=== PATIENT | female | born 1940 | race African-American/Black ===

== ENCOUNTER 2016-07-08 12:00 | Outpatient (RCR) | payer OTHER | END 2016-07-20 | disposition home or self-care (01) | LOC: PTY 12:00 | DX: Z96.652 Presence of left artificial knee joint (principal); M54.9 Dorsalgia, unspecified; M17.11 Unilateral primary osteoarthritis, right knee | CPT/HCPCS: 97110; 97161; G0283 ==

== ENCOUNTER 2016-07-22 11:00 | Outpatient (RCR) | payer OTHER | END 2016-08-19 | disposition home or self-care (01) | LOC: PTY 11:00 | DX: Z96.652 Presence of left artificial knee joint (principal); M54.9 Dorsalgia, unspecified; M17.11 Unilateral primary osteoarthritis, right knee | CPT/HCPCS: 97110; 97116; G0283 ==

== ENCOUNTER 2016-08-25 09:34 | Outpatient (RCR) | payer OTHER | END 2016-09-19 | disposition home or self-care (01) | LOC: PTY 09:34 | DX: M54.9 Dorsalgia, unspecified (principal); R26.9 Unspecified abnormalities of gait and mobility; Z96.652 Presence of left artificial knee joint | CPT/HCPCS: 97110; 97116; G0283 ==

== ENCOUNTER 2017-04-25 10:30 | Outpatient (RCR) | payer OTHER | END 2017-05-20 | disposition home or self-care (01) | LOC: PTY 10:30 | DX: Z96.652 Presence of left artificial knee joint (principal) ==

== ENCOUNTER 2017-05-22 09:30 | Outpatient (RCR) | payer OTHER | END 2017-06-19 | disposition home or self-care (01) | LOC: PTY 09:30 | DX: Z96.652 Presence of left artificial knee joint (principal) ==